=== PATIENT | female | born 1990 | race Caucasian/White ===

== ENCOUNTER → 2016-07-03 | Outpatient (REF) | payer OTHER ==
[~2016-07-03] MED LIST: ACET500C PO; IBUP-1114 PO; LABE20TAB PO
== END ==
LOC: M SFHCLUC 18:55
PROVIDERS: ATTEND Physician Assistant
DX: R50.9 Fever, unspecified (principal)

== ENCOUNTER → 2018-09-10 | Outpatient (CLI) | payer BC, OTHER ==
--- NOTE | 2018-09-10 19:47 | REP ---
LUMBOSACRAL SPINE: Five views of the lumbosacral spine are performed. There is no compression fracture or malalignment. There is normal lumbar lordosis. There is no spondylolysis or spondylolisthesis. There is mild disc space narrowing and subchondral sclerosis at L5-S1 with mild sclerosis at the facets at that level. The posterior elements are intact. IMPRESSION: No fracture or dislocation. Mild degenerative changes at L5-S1. Electronically Signed by Asad Elizalde MD 09/10/2018 08:03 P
== END ==
LOC: M LRY 18:32
PROVIDERS: ATTEND Nurse Practitioner Family
DX: M51.37 Other intervertebral disc degeneration, lumbosacral region (principal); M54.41 Lumbago with sciatica, right side